=== PATIENT | male | born 1985 | race American Indian/Alaskan Native ===

== ENCOUNTER 2018-05-04 14:29 | Inpatient (IN) | payer SELFPAY ==
[2018-05-04] MEDS ORDERED: ASPIRIN PO ONE (14:59)
[2018-05-04] MEDS ORDERED: NACL 0.9% 1000 ML 1,000 ML IV ONE ×2 (14:59→17:01)
--- NOTE | 2018-05-04 15:00 | Emergency Department Report ---
ED Shortness of Breath HPI - General Chief Complaint: Dyspnea/Respdistress Stated Complaint: SOB/OVER EXERTED Time Seen by Provider: 05/04/18 14:57 Source: EMS Mode of arrival: Stretcher Limitations: No Limitations - History of Present Illness Initial Comments: Patient is a 32-year-old male lives emergency room complaints of chest pain and shortness of breath. Patient states she was at the [employer] doing agility test and became acutely short of breath and chest pain. Patient states that his pain is a 10 out of 10. Patient states the pain is not radiating. Patient states the pain is both breast and worse with exertion. Patient also complains of bilateral shoulder pain. Patient states his shoulder pain is 10 out of 10 and nonradiating patient states all his pain is stabbing. Patient states his shoulder pain is better with rest and worse with movement. MD Complaint: shortness of breath, chest pain - Related Data Allergies Allergy/AdvReac Type Severity Reaction Status Date / Time No Known Allergies Allergy Unverified 05/04/18 14:48 ED Review of Systems ROS: Stated complaint: SOB/OVER EXERTED Other details as noted in HPI Constitutional: denies: chills, fever Eyes: denies: eye pain, eye discharge, vision change ENT: denies: ear pain, throat pain Respiratory: shortness of breath, SOB with exertion, SOB at rest. denies: cough, wheezing Cardiovascular: chest pain. denies: palpitations Endocrine: no symptoms reported Gastrointestinal: denies: abdominal pain, nausea, diarrhea Genitourinary: denies: urgency, dysuria Musculoskeletal: denies: back pain, joint swelling, arthralgia Skin: denies: rash, lesions Neurological: denies: headache, weakness, paresthesias Psychiatric: denies: anxiety, depression Hematological/Lymphatic: denies: easy bleeding, easy bruising ED Past Medical Hx - Past Medical History Previous Medical History?: Yes Additional medical history: stomach ulcer - Surgical History Past Surgical History?: No - Family History Family history: no significant - Social History Smoking Status: Never Smoker Substance Use Type: None ED Physical Exam - General Limitations: No Limitations General appearance: alert, in no apparent distress - Head Head exam: Present: atraumatic, normocephalic - Eye Eye exam: Present: normal appearance - ENT ENT exam: Present: mucous membranes moist - Neck Neck exam: Present: normal inspection - Respiratory Respiratory exam: Present: normal lung sounds bilaterally. Absent: respiratory distress - Cardiovascular Cardiovascular Exam: Present: regular rate, normal rhythm. Absent: systolic murmur, diastolic murmur, rubs, gallop - GI/Abdominal GI/Abdominal exam: Present: soft, normal bowel sounds - Rectal Rectal exam: Present: deferred - Extremities Exam Extremities exam: Present: normal inspection - Back Exam Back exam: Present: normal inspection - Neurological Exam Neurological exam: Present: alert, oriented X3 - Psychiatric Psychiatric exam: Present: normal affect, normal mood - Skin Skin exam: Present: warm, dry, intact, normal color. Absent: rash ED Course Vital Signs 05/04/18 05/04/18 05/04/18 14:40 14:43 14:46 Temperature 98.2 F Pulse Rate 100 H 100 H 102 H Respiratory 22 32 H Rate Blood Pressure 107/36 Blood Pressure [Right] O2 Sat by Pulse 97 95 Oximetry 05/04/18 05/04/18 05/04/18 14:47 15:00 15:15 Temperature 98.2 F Pulse Rate 100 H 99 H 103 H Respiratory 20 20 19 Rate Blood Pressure 107/36 Blood Pressure 107/36 [Right] O2 Sat by Pulse 97 100 100 Oximetry 05/04/18 05/04/18 05/04/18 15:31 15:45 15:46 Temperature 98.6 F Pulse Rate 107 H 108 H 115 H Respiratory 24 44 H 21 Rate Blood Pressure 107/36 164/75 Blood Pressure 164/75 [Right] O2 Sat by Pulse 98 99 100 Oximetry 05/04/18 05/04/18 05/04/18 16:01 16:15 16:31 Temperature Pulse Rate 109 H 105 H 99 H Respiratory 24 16 16 Rate Blood Pressure 164/75 164/75 164/75 Blood Pressure [Right] O2 Sat by Pulse 100 100 99 Oximetry 05/04/18 05/04/18 05/04/18 16:45 17:01 17:15 Temperature Pulse Rate 98 H 103 H 105 H Respiratory 18 32 H 19 Rate Blood Pressure 164/75 164/75 164/75 Blood Pressure [Right] O2 Sat by Pulse 100 100 100 Oximetry 05/04/18 05/04/18 17:31 17:45 Temperature Pulse Rate 103 H 102 H Respiratory 21 20 Rate Blood Pressure 164/75 164/75 Blood Pressure [Right] O2 Sat by Pulse 100 100 Oximetry - Reevaluation(s) Reevaluation #1: Patient made aware of all results with patient. Patient to be admitted to the hospitalist service. Patient agrees to plan of care and admission. 05/04/18 16:58 - Consultations Consultation #1: Hospitalist to admit patient. Hospitalist consult. Hospitalist to assume care patient. 05/04/18 16:58 ED Medical Decision Making - Lab Data Result diagrams: 05/04/18 15:01 05/04/18 15:01 - EKG Data -: EKG Interpreted by Ga EKG shows normal: sinus rhythm, axis, intervals, QRS complexes, ST-T waves Rate: tachycardia - Radiology Data Radiology results: report reviewed AP CHEST: HISTORY: Shortness of breath AP view of the chest demonstrates a normal mediastinal and cardiac contour with clear lungs and normal bony and soft tissue structures. IMPRESSION: Unremarkable AP chest. - Medical Decision Making Patient is a 32-year-old male S emergency room with chest pain and shortness of breath while doing an physical activity. Patient was admitted to the hospitalist service for further evaluation and treatment and rule out ACS. Patient's labs were unremarkable except for elevated CK. Initial cardiac workup negative. EKG negative. Chest x-ray negative. - Differential Diagnosis ACS. Shortness of breath. Chest pain. Dehydration. Critical Care Time: Yes Critical care attestation.: If time is entered above; I have spent that time in minutes in the direct care of this critically ill patient, excluding procedure time. Critical Care Time: 35 minutes ED Disposition Clinical Impression: SOB (shortness of breath), Tachycardia, Elevated CK, Dehydration Chest pain Qualifiers: Chest pain type: unspecified Qualified Code(s): R07.9 - Chest pain, unspecified Disposition: OP ADMIT IP TO THIS HOSP Is pt being admited?: Yes Does the pt Need Aspirin: No Condition: Critical Time of Disposition: 17:01
[2018-05-04 15:16] LABS: Hematocrit 42.5 % (35.5-45.6); Hemoglobin 14.1 gm/dl (11.8-15.2); Mean Corpuscular HGB Conc 33 % (32-34); Mean Corpuscular Volume 93 fl (84-94); Platelet Count 336 K/mm3 (140-440); Red Blood Count 4.59 M/mm3 (3.65-5.03); Red Cell Distribution Width 12.5 % (13.2-15.2)
--- NOTE | 2018-05-04 15:19 | XRay Report ---
AP CHEST: HISTORY: Shortness of breath AP view of the chest demonstrates a normal mediastinal and cardiac contour with clear lungs and normal bony and soft tissue structures. IMPRESSION: Unremarkable AP chest.
[2018-05-04 15:37] LABS: BUN/Creatinine Ratio 10; Blood Urea Nitrogen 13 mg/dL (9-20); Calcium 9.8 mg/dL (8.4-10.2); Hemolysis Index 20
[2018-05-04 15:37] LABS: Creatine Kinase MB 3.1 ng/mL (0.0-4.0)
[2018-05-04 15:39] LABS: Alanine Aminotransferase 25 units/L (7-56); Albumin 4.8 g/dL (3.9-5)
[2018-05-04 15:44] LABS: Bilirubin,Direct < 0.2 mg/dL (0-0.2)
[2018-05-04 21:23] LABS: Anisocytosis 1+; Basophils % (Manual) 0 % (0.0-1.8); Eosinophils % (Manual) 0 % (0.0-4.3); Platelet Estimate Consistent w Auto; Total Cells Counted 100
--- NOTE | 2018-05-04 21:59 | History and Physical Report ---
History of Present Illness Date of examination: 05/04/18 Date of admission: 05/04/18 17:02 Chief complaint: Chest pain and pain all over few hours History of present illness: 32-year-old -[place] male comes to the emergency room for pain all over and chest pain. Patient had 2 undergo agility test which involved him running surgical steps followed by one lap and then pulling at time. His pain is about 8 on 10 all over and also involving the chest as per the ER physician. During my history taking patient denies chest pain. Muscular pain is about 8 on a scale of 1-10. No shortness of breath. Past Medical History Previous Medical History?: Yes Additional medical history: stomach ulcer Surgical History Past Surgical History?: No Family History Family history: no significant Social History Smoking Status: Never Smoker Substance Use Type: None Review of Systems ROS: Stated complaint: SOB/OVER EXERTED Other details as noted in HPI Constitutional: denies: chills, fever Eyes: denies: eye pain, eye discharge, vision change ENT: denies: ear pain, throat pain Respiratory: , SOB with excessive exertion,. denies: cough, wheezing Cardiovascular: chest pain. denies: palpitations Endocrine: no symptoms reported Gastrointestinal: denies: abdominal pain, nausea, diarrhea Genitourinary: denies: urgency, dysuria Musculoskeletal: Muscle pains all over Skin: denies: rash, lesions Neurological: denies: headache, weakness, paresthesias Psychiatric: denies: anxiety, depression Hematological/Lymphatic: denies: easy bleeding, easy bruising Medications and Allergies Allergies Allergy/AdvReac Type Severity Reaction Status Date / Time No Known Allergies Allergy Unverified 05/04/18 14:48 Exam - Constitutional Vitals: Temp Pulse Resp BP Pulse Ox 98.2 F 95 H 17 134/77 99 05/04/18 20:07 05/04/18 20:07 05/04/18 20:07 05/04/18 20:07 05/04/18 20:07 General appearance: Present: no acute distress, well-nourished - EENT Eyes: Present: PERRL ENT: hearing intact, clear oral mucosa - Neck Neck: Present: supple, normal ROM - Respiratory Respiratory effort: normal Respiratory: bilateral: CTA - Cardiovascular Heart rate: 76 Rhythm: regular Heart Sounds: Present: S1 & S2. Absent: rub, click - Extremities Extremities: no ischemia, pulses intact, pulses symmetrical, No edema Peripheral Pulses: within normal limits - Abdominal General gastrointestinal: Present: soft, non-tender, non-distended, normal bowel sounds Male genitourinary: Present: normal - Rectal Rectal Exam: deferred - Integumentary Integumentary: Present: clear, warm, dry - Musculoskeletal Musculoskeletal: gait normal, strength equal bilaterally - Psychiatric Psychiatric: appropriate mood/affect, intact judgment & insight - Neurologic Neurologic: CNII-XII intact, moves all extremities - Allied Health Allied health notes reviewed: nursing, case management Results - Labs CBC & Chem 7: 05/04/18 15:01 05/04/18 15:01 Labs: Laboratory Last Values WBC 11.2 K/mm3 (4.5-11.0) H 05/04/18 15:01 RBC 4.59 M/mm3 (3.65-5.03) 05/04/18 15:01 Hgb 14.1 gm/dl (11.8-15.2) 05/04/18 15:01 Hct 42.5 % (35.5-45.6) 05/04/18 15:01 MCV 93 fl (84-94) 05/04/18 15:01 MCH 31 pg (28-32) 05/04/18 15:01 MCHC 33 % (32-34) 05/04/18 15:01 RDW 12.5 % (13.2-15.2) L 05/04/18 15:01 Plt Count 336 K/mm3 (140-440) 05/04/18 15:01 Add Manual Diff Complete 05/04/18 15:01 Total Counted 100 05/04/18 15:01 Seg Neuts % (Manual) 69.0 % (40.0-70.0) 05/04/18 15:01 Band Neutrophils % 0 % 05/04/18 15:01 Lymphocytes % (Manual) 24.0 % (13.4-35.0) 05/04/18 15:01 Reactive Lymphs % (Man) 0 % 05/04/18 15:01 Monocytes % (Manual) 7.0 % (0.0-7.3) 05/04/18 15:01 Eosinophils % (Manual) 0 % (0.0-4.3) 05/04/18 15:01 Basophils % (Manual) 0 % (0.0-1.8) 05/04/18 15:01 Metamyelocytes % 0 % 05/04/18 15:01 Myelocytes % 0 % 05/04/18 15:01 Promyelocytes % 0 % 05/04/18 15:01 Blast Cells % 0 % 05/04/18 15:01 Nucleated RBC % Not Reportable 05/04/18 15:01 Seg Neutrophils # Man 7.7 K/mm3 (1.8-7.7) 05/04/18 15:01 Band Neutrophils # 0.0 K/mm3 05/04/18 15:01 Lymphocytes # (Manual) 2.7 K/mm3 (1.2-5.4) 05/04/18 15:01 Abs React Lymphs (Man) 0.0 K/mm3 05/04/18 15:01 Monocytes # (Manual) 0.8 K/mm3 (0.0-0.8) 05/04/18 15:01 Eosinophils # (Manual) 0.0 K/mm3 (0.0-0.4) 05/04/18 15:01 Basophils # (Manual) 0.0 K/mm3 (0.0-0.1) 05/04/18 15:01 Metamyelocytes # 0.0 K/mm3 05/04/18 15:01 Myelocytes # 0.0 K/mm3 05/04/18 15:01 Promyelocytes # 0.0 K/mm3 05/04/18 15:01 Blast Cells # 0.0 K/mm3 05/04/18 15:01 WBC Morphology Not Reportable 05/04/18 15:01 Hypersegmented Neuts Not Reportable 05/04/18 15:01 Hyposegmented Neuts Not Reportable 05/04/18 15:01 Hypogranular Neuts Not Reportable 05/04/18 15:01 Smudge Cells Not Reportable 05/04/18 15:01 Toxic Granulation Not Reportable 05/04/18 15:01 Toxic Vacuolation Not Reportable 05/04/18 15:01 Dohle Bodies Not Reportable 05/04/18 15:01 Pelger-Huet Anomaly Not Reportable 05/04/18 15:01 Ruben Rods Not Reportable 05/04/18 15:01 Platelet Estimate Consistent w auto 05/04/18 15:01 Clumped Platelets Not Reportable 05/04/18 15:01 Plt Clumps, EDTA Not Reportable 05/04/18 15:01 Large Platelets Not Reportable 05/04/18 15:01 Giant Platelets Not Reportable 05/04/18 15:01 Platelet Satelliting Not Reportable 05/04/18 15:01 Plt Morphology Comment Not Reportable 05/04/18 15:01 RBC Morphology Not Reportable 05/04/18 15:01 Dimorphic RBCs Not Reportable 05/04/18 15:01 Polychromasia Not Reportable 05/04/18 15:01 Hypochromasia Not Reportable 05/04/18 15:01 Poikilocytosis Not Reportable 05/04/18 15:01 Anisocytosis 1+ 05/04/18 15:01 Microcytosis Not Reportable 05/04/18 15:01 Macrocytosis Not Reportable 05/04/18 15:01 Spherocytes Not Reportable 05/04/18 15:01 Pappenheimer Bodies Not Reportable 05/04/18 15:01 Sickle Cells Not Reportable 05/04/18 15:01 Target Cells Not Reportable 05/04/18 15:01 Tear Drop Cells Not Reportable 05/04/18 15:01 Ovalocytes Not Reportable 05/04/18 15:01 Helmet Cells Not Reportable 05/04/18 15:01 Chen-Garden Bodies Not Reportable 05/04/18 15:01 Deposit Rings Not Reportable 05/04/18 15:01 [place] Cells Not Reportable 05/04/18 15:01 Bite Cells Not Reportable 05/04/18 15:01 Crenated Cell Not Reportable 05/04/18 15:01 Elliptocytes Not Reportable 05/04/18 15:01 Acanthocytes (Spur) Not Reportable 05/04/18 15:01 Rouleaux Not Reportable 05/04/18 15:01 Hemoglobin C Crystals Not Reportable 05/04/18 15:01 Schistocytes Not Reportable 05/04/18 15:01 Malaria parasites Not Reportable 05/04/18 15:01 Loi Bodies Not Reportable 05/04/18 15:01 Hem Pathologist Commnt No 05/04/18 15:01 Sodium 141 mmol/L (137-145) 05/04/18 15:01 Potassium 4.2 mmol/L (3.6-5.0) 05/04/18 15:01 Chloride 99.7 mmol/L (98-107) 05/04/18 15:01 Carbon Dioxide 14 mmol/L (22-30) L 05/04/18 15:01 Anion Gap 32 mmol/L 05/04/18 15:01 BUN 13 mg/dL (9-20) 05/04/18 15:01 Creatinine 1.3 mg/dL (0.8-1.5) 05/04/18 15:01 Estimated GFR > 60 ml/min 05/04/18 15:01 BUN/Creatinine Ratio 10 % 05/04/18 15:01 Glucose 140 mg/dL (75-100) H 05/04/18 15:01 Calcium 9.8 mg/dL (8.4-10.2) 05/04/18 15:01 Total Bilirubin 0.30 mg/dL (0.1-1.2) 05/04/18 15:03 Direct Bilirubin < 0.2 mg/dL (0-0.2) 05/04/18 15:03 Indirect Bilirubin 0.1 mg/dL 05/04/18 15:03 AST 42 units/L (5-40) H 05/04/18 15:03 ALT 25 units/L (7-56) 05/04/18 15:03 Alkaline Phosphatase 74 units/L (35-129) 05/04/18 15:03 Total Creatine Kinase 293 units/L (55-170) H 05/04/18 15:03 CK-MB (CK-2) 3.1 ng/mL (0.0-4.0) 05/04/18 15:03 CK-MB (CK-2) Rel Index 1.0 (0-4) 05/04/18 15:03 Troponin T < 0.010 ng/mL (0.00-0.029) 05/04/18 15:03 Total Protein 7.8 g/dL (6.3-8.2) 05/04/18 15:03 Albumin 4.8 g/dL (3.9-5) 05/04/18 15:03 Albumin/Globulin Ratio 1.6 % 05/04/18 15:03 Short CBC 05/04/18 Range/Units 15:01 WBC 11.2 H (4.5-11.0) K/mm3 Hgb 14.1 (11.8-15.2) gm/dl Hct 42.5 (35.5-45.6) % Plt Count 336 (140-440) K/mm3 BMP 05/04/18 15:01 Sodium 141 Potassium 4.2 Chloride 99.7 Carbon Dioxide 14 L BUN 13 Creatinine 1.3 Glucose 140 H Calcium 9.8 Cardiac Enzymes 05/04/18 Range/Units 15:03 Total Creatine Kinase 293 H (55-170) units/L CK-MB (CK-2) 3.1 (0.0-4.0) ng/mL Troponin T < 0.010 (0.00-0.029) ng/mL Liver Function 05/04/18 Range/Units 15:03 Total Bilirubin 0.30 (0.1-1.2) mg/dL Direct Bilirubin < 0.2 (0-0.2) mg/dL AST 42 H (5-40) units/L ALT 25 (7-56) units/L Alkaline Phosphatase 74 (35-129) units/L Albumin 4.8 (3.9-5) g/dL - Imaging and Cardiology EKG: report reviewed (normal sinus rhythm) Imaging and Cardiology: EKG Data EKG Interpreted by Sd EKG shows normal: sinus rhythm, axis, intervals, QRS complexes, ST-T waves Rate: tachycardia Radiology Data Radiology results: report reviewed AP CHEST: HISTORY: Shortness of breath AP view of the chest demonstrates a normal mediastinal and cardiac contour with clear lungs and normal bony and soft tissue structures. He is IMPRESSION: Unremarkable AP chest. Assessment and Plan Advance Directives: Yes (full code) VTE prophylaxis?: Chemical Plan of care discussed with patient/family: Yes - Patient Problems (1) Chest pain Current Visit: Yes Status: Acute Qualifiers: Chest pain type: chest pain on breathing Qualified Code(s): R07.1 - Chest pain on breathing; R07.81 - Pleurodynia Plan to address problem: Chest pain secondary to muscular exertion Cardiac cause unlikely Will get a treadmill stress test Troponins serially (2) Myalgia Current Visit: Yes Status: Acute Plan to address problem: Secondary to unaccustomed exertion Tylenol versus Motrin when necessary (3) Dehydration Current Visit: Yes Status: Acute Plan to address problem: IV fluids for now (4) DVT prophylaxis Current Visit: Yes Status: Acute Plan to address problem: Lovenox 40 mg subcutaneous daily and GI prophylaxis
[2018-05-04] MEDS ORDERED: SODIUM CHLORIDE FLUSH SYRINGE 10 ML IV PRN (22:23)
[2018-05-04] MEDS ORDERED: IBUPROFEN PO PRN (22:23)
[2018-05-04] MEDS ORDERED: TYLENOL PO PRN (22:23)
[2018-05-04] MEDS ORDERED: ZOFRAN IV PRN (22:23)
[2018-05-04] MEDS ORDERED: D5NS 1,000 ML IV SCH (23:00)
[2018-05-05] MEDS ORDERED: SODIUM CHLORIDE FLUSH SYRINGE 10 ML IV SCH (10:00)
[2018-05-05] MEDS ORDERED: PEPCID PO SCH (10:00)
[2018-05-05] MEDS ORDERED: AFLURIA QUAD 2018-2019 SYRINGE IM ONE (12:00)
[2018-05-05 12:57] VITALS: BP 142/85
--- NOTE | 2018-05-05 15:23 | Discharge Summary ---
Providers - Providers Date of Admission: 05/04/18 17:02 Date of discharge: 05/05/18 Attending physician: XOCHITL BOB Primary care physician: ISIDRO LIU Hospitalization Reason for admission: chest pain Condition: Stable Pertinent studies: cxr stress test Hospital course: 32-year-old -[place] male comes to the emergency room for pain all over and chest pain. He was admitted for chest pain and to r/o ACS. Discharge diagnosis: / Chest pain Chest pain secondary to muscular strain/myalgia Cardiac cause unlikely, negative troponin s/p stress test today and that was normal He was then discharged home in stable condition with outpt followup / Myalgia Secondary to unaccustomed exertion Tylenol when necessary / Dehydration given IV fluids / DVT prophylaxis Lovenox Physical exam: General appearance: Present: no acute distress, well-nourished - EENT Eyes: PERRL, EOM intact ENT: hearing intact, clear oral mucosa Ears: bilateral: normal - Neck Neck: supple, normal ROM - Respiratory Respiratory effort: normal Respiratory: bilateral: CTA - Cardiovascular Rhythm: regular Heart Sounds: Present: S1 & S2. Absent: gallop, rub Extremities: pulses intact, No edema, normal color, Full ROM - Gastrointestinal General gastrointestinal: Present: soft, non-tender, non-distended, normal bowel sounds - Integumentary Integumentary: clear, warm, dry - Musculoskeletal Musculoskeletal: 1, strength equal bilaterally - Neurologic Neurologic: moves all extremities - Psychiatric Psychiatric: memory intact, appropriate mood/affect, intact judgment & insight Disposition: DC-01 TO HOME OR SELFCARE Time spent for discharge: 34 minutes Core Measure Documentation - Palliative Care Palliative Care/ Comfort Measures: Not Applicable - Core Measures Any of the following diagnoses?: none Exam - Constitutional Vitals: Temp Pulse Resp BP Pulse Ox 98.0 F 95 H 20 142/85 100 05/05/18 12:56 05/05/18 12:56 05/05/18 12:56 05/05/18 12:56 05/05/18 12:56 Plan Activity: advance as tolerated Weight Bearing Status: Weight Bear as Tolerated Diet: regular Additional Instructions: please come back if chest pain returns. 2d echo/stress test outpt Follow up with: ISIDRO LIU MD [Primary Care Provider] - 7 Days OSKAR RAMIREZ MD [Staff Physician] - 7 Days Forms: Work/School Release Form
[2018-05-05] MEDS ORDERED: LOVENOX SUB-Q SCH (22:00)
--- NOTE | 2018-05-05 22:44 | Treadmill Report ---
EXERCISE ECG STRESS TEST REPORT The patient exercised for 12 minutes of a Gualberto protocol, completing stage 4 and achieving 13 METs. Peak heart rate was 172 beats per minute. Peak blood pressure was 140 systolic. There was no chest pain. Test was stopped due to fatigue. Baseline ECG was sinus rhythm. With exercise, there were no ST changes of ischemia. No significant dysrhythmias were noted. CONCLUSION: 1. Very good exercise capacity. 2. No chest pain. 3. No ST changes of ischemia. 4. No significant dysrhythmias. This is a normal exercise ECG test. JOB# [id number] CA/NTS
== END 2018-05-05 17:20 | disposition home or self-care (01) | DRG 563 ==
LOC: ED 14:29 → 4A 17:02
PROVIDERS: ADMIT Internal Medicine; ATTEND Internal Medicine
DX: S29.011A Strain of muscle and tendon of front wall of thorax, initial encounter (principal); R00.0 Tachycardia, unspecified; E86.0 Dehydration; R07.81 Pleurodynia; R07.89 Other chest pain; M79.10 Myalgia, unspecified site; Y93.B9 Activity, other involving muscle strengthening exercises; Y92.89 Other specified places as the place of occurrence of the external cause; Y99.8 Other external cause status
CPT/HCPCS: 36415; 71045; 80048; 80076; 82550; 82553; 84484; 85007; 85025; 90686; 93005; 93010; 93017; 96360; G0378; J7030